=== PATIENT | male | born 2000 | race Caucasian/White ===

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

== ENCOUNTER 2021-08-19 04:22 | Emergency (ER) | payer OTHER ==
[~2021-08-19] VITALS: Ht 154.9 cm; Wt 58.1 kg
[~2021-08-19 04:22] MED LIST changes: +DOLOGEN 325-11 EACH PO; +PEPCID AC20 MG PO
== END 2021-08-19 08:30 | disposition home or self-care (01) ==
LOC: ER 04:22 → EMR PED 04:23 → ER 04:23 → EMR PED 08:30
DX: J03.90 Acute tonsillitis, unspecified (principal); R05.9 Cough, unspecified

== ENCOUNTER 2023-02-23 16:21 | Emergency (ER) | payer OTHER ==
[~2023-02-23] VITALS: Ht 154.9 cm; Wt 59.0 kg
== END 2023-02-23 21:31 | disposition home or self-care (01) ==
LOC: ER 16:21
DX: K52.9 Noninfective gastroenteritis and colitis, unspecified (principal)